=== PATIENT | female | born 1965 | race Caucasian/White ===

== ENCOUNTER 2019-01-20 12:57 | Outpatient (CLI) | payer MEDICAID ==
[~2019-01-20] VITALS: Ht 175.3 cm; Wt 99.8 kg
[2019-01-20] MEDS ORDERED: TRAMADOL HCL50 MG ORAL (14:31)
[2019-01-20] MEDS ORDERED: MIRALAX17 G2 ORAL (14:31)
[2019-01-20] MEDS ORDERED: B-121000 MCG PO (14:31)
[2019-01-20] MEDS ORDERED: PROAIR HFA8.5 GM INH (14:31)
[2019-01-20] MEDS ORDERED: ZANTAC150 MG ORAL (14:31)
[2019-01-20] MEDS ORDERED: TRAZODONE HCL150 MG ORAL (14:31)
[2019-01-20] MEDS ORDERED: PANTOPRAZOLE SO40 MG ORAL (14:31)
[2019-01-20] MEDS ORDERED: VITAMIN D250000 UNI1 ORAL (14:31)
[2019-01-20 14:33] VITALS: BP 112/72
--- NOTE | 2019-01-20 23:00 | Consultation ---
DATE OF CONSULTATION: 01/20/2019 CHIEF COMPLAINT: 1. Acid reflux. 2. Heartburn. HISTORY OF PRESENT ILLNESS: This is a 53-year-old female who initially had gastric banding and then she had bypass in 2013. She has been complaining of severe acid reflux symptoms to the point that she gets chest pain, goes to the hospital, had cardiac workup which was negative. Now she is here for evaluation. PAST MEDICAL HISTORY: 1. IBS. 2. Asthma. 3. GERD. 4. Hypertension. 5. Diverticulosis/diverticulitis. 6. Peptic ulcer disease. 7. UTI. 8. Kidney stones. 9. Breast cyst which was benign. 10. Obesity, status post gastric bypass. MEDICATIONS: Please see medication reconciliation list. FAMILY HISTORY: No family history of GI malignancies. SOCIAL HISTORY: The patient drinks socially. Denies any tobacco or IV drug abuse. ALLERGIES: No known drug allergy. REVIEW OF SYSTEMS: Mostly as above. Positive for severe GERD, chest pain. Heartburn. PHYSICAL EXAMINATION: VITAL SIGNS: Temperature 97.8, blood pressure is 112/77, pulse 79, respirations 20. HEENT: Normocephalic and atraumatic. Sclerae anicteric. NECK: Supple. No evidence of obvious lymphadenopathy. CARDIOVASCULAR: Regular rate and rhythm. Plus S1 and S2. No obvious murmur. LUNGS: Decreased breath sounds bilaterally based on the supine exam. ABDOMEN: Soft and nontender. No rebound. No guarding. No peritoneal sign. EXTREMITIES: No cyanosis. No clubbing. No edema. ASSESSMENT AND PLAN: This is a 53-year-old female with severe GERD. The patient was given Protonix twice a day 40 mg in the morning and 40 mg at nighttime. She was educated about reflux measures and heartburn diet. She was also given prescription for baclofen 20 mg nightly and Carafate 1 g t.i.d. and the patient to be scheduled for endoscopy. I want to thank for this kind referral. Rodrigue Jones M.D. DR: Alicia JOB#: [id number] CC:
== END 2019-01-20 15:51 | disposition home or self-care (01) ==
LOC: PAN 12:57
DX: K21.9 Gastro-esophageal reflux disease without esophagitis (principal); R12 Heartburn; I10 Essential (primary) hypertension; K58.9 Irritable bowel syndrome, unspecified; Z98.84 Bariatric surgery status; Z87.11 Personal history of peptic ulcer disease; Z87.442 Personal history of urinary calculi; K57.90 Diverticulosis of intestine, part unspecified, without perforation or abscess without bleeding; R07.9 Chest pain, unspecified
CPT/HCPCS: 99202

== ENCOUNTER 2019-02-17 13:18 | Outpatient (CLI) | payer MEDICAID ==
[~2019-02-17 13:18] MED LIST: B-121000 MCG PO; MIRALAX17 G2 ORAL; PANTOPRAZOLE SO40 MG ORAL; PROAIR HFA8.5 GM INH; TRAMADOL HCL50 MG ORAL; TRAZODONE HCL150 MG ORAL; VITAMIN D250000 UNI1 ORAL; ZANTAC150 MG ORAL
[2019-02-18 07:47] VITALS: BP 120/76
[2019-02-18] MEDS ORDERED: PREVACID30 MG ORAL (07:47)
--- NOTE | 2019-02-18 08:42 | General Progress Note ---
Assessment/Plan Assessment/Plan: 3 cm HH gastric bypass constipation h/o multiple polyps Linzess 290 miralax plan colonoscopy Subjective ROS Limited/Unobtainable: Yes Allergies: Coded Allergies: No Known Allergies (Unverified , 01/20/19) Objective Last 24 Hour Vital Signs Date Time Temp Pulse Resp B/P (MAP) Pulse Ox O2 Delivery O2 Flow Rate FiO2 02/18/19 07:47 97.6 71 16 120/76 (91) 99 General Appearance: alert EENT: normal ENT inspection Neck: supple Cardiovascular: normal rate Respiratory/Chest: decreased breath sounds Abdomen: normal bowel sounds, non tender, soft Extremities: non-tender Rodrigue Jones MD Feb 18, 2019 08:42
== END 2019-02-17 15:18 | disposition home or self-care (01) ==
LOC: PAN 13:18
DX: K44.9 Diaphragmatic hernia without obstruction or gangrene (principal); Z98.84 Bariatric surgery status; K59.00 Constipation, unspecified; Z86.010 Personal history of colon polyps
CPT/HCPCS: 99212

== ENCOUNTER 2020-02-05 14:07 | Outpatient (CLI) | payer MEDICAID ==
[~2020-02-05 14:07] MED LIST changes: +PREVACID30 MG ORAL
[2020-02-05] MEDS ORDERED: CYMBALTA60 MG ORAL (14:30)
[2020-02-05 14:31] VITALS: BP 121/62
--- NOTE | 2020-02-05 14:42 | General Progress Note ---
Subjective ROS Limited/Unobtainable: Yes Allergies: Coded Allergies: No Known Allergies (Unverified , 01/20/19) Objective Last 24 Hour Vital Signs Date Time Temp Pulse Resp B/P (MAP) Pulse Ox O2 Delivery O2 Flow Rate FiO2 02/05/20 14:31 97.8 82 18 121/62 100 General Appearance: alert EENT: normal ENT inspection Neck: supple Cardiovascular: normal rate Respiratory/Chest: lungs clear Abdomen: normal bowel sounds, non tender, soft Extremities: non-tender Assessment/Plan Assessment/Plan: Assessment/Plan Assessment/Plan: Progress Note date and time: 02/18/19 0842 Assessment/Plan Assessment/Plan: 3 cm HH gastric bypass constipation h/o multiple polyps Linzess 290>>> no results miralax ppi check B12 and mag c/o new onset of dysphagia plan repeat EGD s/p colonoscopy>> 5 polyps>>> repeat colon in 3 year from 04/2019 Rodrigue Jones MD Feb 05, 2020 14:42
== END 2020-02-05 16:07 | disposition home or self-care (01) ==
LOC: PAN 14:07
DX: K44.9 Diaphragmatic hernia without obstruction or gangrene (principal); K59.00 Constipation, unspecified; R13.10 Dysphagia, unspecified; Z86.010 Personal history of colon polyps; Z98.84 Bariatric surgery status
CPT/HCPCS: 99212